=== PATIENT | female | born 1955 | race Caucasian/White ===

== ENCOUNTER 2022-09-24 08:25 | Day surgery (SDC) | payer MEDICARE, SELFPAY ==
[2022-07-30 11:31] VITALS: BMI 25.7
[2022-09-12 11:20] VITALS: BMI 25.3
--- NOTE | 2022-09-21 13:40 | PM.HPGS ---
History of Present Illness History of Present Illness Consent: Risks, benefits, and alternatives have been discussed and questions answered. Patient agrees to proceed with procedure. Chief complaint: Neoplasm Screening Narrative: Genevieve Senior is a 67 year old female referred for colon cancer screening. She had a normal colonoscopy 10 years ago Review of Systems Review of Systems: All systems reviewed & are unremarkable except as noted in HPI and below PMFSH Family History Family History Father Hypertension Malignant neoplasm of prostate Social History Social History Smoking status: Never smoker Alcohol intake: current Substance use: never Substance use type: does not use Living arrangements: with family Spiritual care concerns: No Meds Home Medications and Allergies Home Medications Medication Instructions Recorded Confirmed Type atorvastatin 10 mg tablet 10 mg PO DAILY 09/12/22 09/24/22 History escitalopram oxalate 10 mg tablet 10 mg PO DAILY 09/12/22 09/24/22 History lorazepam 0.5 mg tablet 0.5 mg PO DAILY 09/12/22 09/24/22 History omeprazole 40 mg capsule,delayed 40 mg PO DAILY 09/12/22 09/24/22 History release Allergies Allergy/AdvReac Type Severity Reaction Status Date / Time codeine AdvReac Mild Nausea and Verified 09/24/22 09:14 Vomiting Exam Const: General: alert Orientation/consciousness: patient oriented x3 Resp: Auscultation: clear to auscultation bilaterally Cardio: Rhythm: regular rhythm GI: GI Palp: Yes Soft to palpation and No Tenderness to palpation present (GI) Neuro: General: patient oriented x3 Assessment and Plan Assessment and plan (1) Colon cancer screening: Code(s): Z12.11 - Encounter for screening for malignant neoplasm of colon Status: Acute Assessment and Plan: Colonoscopy with possible biopsy or polypectomy or cautery or injection of substances.
[2022-09-24 09:05] VITALS: BP 105/68; PULSE 100; RESP 20; TEMP 37.2; O2SAT 99
[2022-09-24] MEDS: LACTATED RINGERS 1,000 ML 150 ML IV CONT (09:18)
--- NOTE | 2022-09-24 09:42 | WPDANESEPPF ---
Anes - Initial Pre Proc Eval Procedure: Operation Date: 09/24/22 10:30 Proposed Procedures p Screening Colonoscopy - Dez Khan MD Date/Time: 09/24/22 09:42 Surgeon: Dez Khan MD Pre Op Diagnosis: Neoplasm Screening Patient Data Age: 67 Gender: F Height: 1.63 m Weight: 67.2 kg Last Vital Signs Temp 37.2 C 09/24/22 09:05 Pulse 100 09/24/22 09:05 Resp 20 09/24/22 09:05 BP 105/68 09/24/22 09:05 Pulse Ox 99 09/24/22 09:05 O2 Del Method Room Air 09/24/22 09:05 Allergies Allergy/AdvReac Type Severity Reaction Status Date / Time codeine AdvReac Mild Nausea and Verified 09/24/22 09:14 Vomiting Home Medications Medication Instructions Recorded Confirmed Type atorvastatin 10 mg tablet 10 mg PO DAILY 09/12/22 09/24/22 History escitalopram oxalate 10 mg tablet 10 mg PO DAILY 09/12/22 09/24/22 History lorazepam 0.5 mg tablet 0.5 mg PO DAILY 09/12/22 09/24/22 History omeprazole 40 mg capsule,delayed 40 mg PO DAILY 09/12/22 09/24/22 History release Patient hx anesthesia problems: none Family hx anesthesia problems: none Results Review: All pre-operative results and documents have been reviewed as part of the pre-operative evaluation. [facility] Family History Family History Father Hypertension Malignant neoplasm of prostate Social History Social History Smoking status: Never smoker Alcohol intake: current Substance use: never Substance use type: does not use Living arrangements: with family Spiritual care concerns: No Anes - Eval Final PreProcedure Day of Procedure 09/24/22 09:42 Patient weight: normal Heart: regular rate and rhythm Lungs: clear to auscultation Airway: Mallampati scale class II Neurological: alert and oriented Last oral intake: >/= 8 hours ASA classification: II Emergent: no Anesthetic plan: proceed Anesthesia type and monitoring: general GIVS and standard monitoring Results Review: All pre-operative results and documents have been reviewed as part of the pre-operative evaluation. Informed Consent: The patient's anesthetic plan and its attendant risks and benefits were discussed with the patient/family/POA. Questions were solicited and answers provided to the satisfaction of the patient/family/POA.
[2022-09-24 10:40] VITALS: BP 91/63; PULSE 73; RESP 15; O2SAT 99
[2022-09-24 10:50] VITALS: BP 105/73; PULSE 65; RESP 15; O2SAT 99
[2022-09-24 11:00] VITALS: BP 103/69; PULSE 64; RESP 14; O2SAT 100
--- NOTE | 2022-09-24 12:26 | WPDANESPN ---
Anes - Prog Note Post-Op Date/Time: 09/24/22 12:26 Cardiovascular status: normal Respiratory status: normal Airway patency: baseline Mental status: baseline Post-Op hydration status: normal Vital Signs: Last Vital Signs Temp 37.2 C 09/24/22 09:05 Pulse 64 09/24/22 11:00 Resp 14 09/24/22 11:00 BP 103/69 09/24/22 11:00 Pulse Ox 100 09/24/22 11:00 O2 Del Method Room Air 09/24/22 11:00 Pain Score (VAS): 0 I/O: Intake & Output 09/23/22 09/24/22 09/24/22 23:59 07:59 15:59 Intake Total 400 Balance 400 Patient Feedback: Patient satisfied with anesthetic care.
== END 2022-09-24 11:20 | disposition home or self-care (01) ==
PROVIDERS: PCP Internal Medicine; Visit Provider Internal Medicine Gastroenterology
PROC: 0DJD8ZZ Inspection of Lower Intestinal Tract, Via Natural or Artificial Opening Endoscopic (ICD-10-PCS; CPT 45378; principal; 2022-09-24 10:30)
DX: Z12.11 Encounter for screening for malignant neoplasm of colon (principal)
CPT/HCPCS: 45378

== ENCOUNTER → 2023-10-11 12:06 | Outpatient (CLI) | payer MEDICARE, SELFPAY ==
--- NOTE | ~2023-10-11 | DEXA_ITS ---
Bone Density Report Name: FATOU BRODERICK Age: 68 Sex: Female Ethnicity: White Date of : 1955 Indication: postmenopausal; screening for osteoporosis; Referring Provider: CANDACE, KAVON Higuera Study: Bone densitometry was performed. Exam Date: October 11, 2023 Accession number: [id number] Bone Density: Region BMD T-score Z-score Classification AP Spine (L1-L4) 0.763 -2.6 -0.7 Osteoporosis Femoral Neck (Left) 0.608 -2.2 -0.6 Osteopenia Total Hip (Left) 0.757 -1.5 -0.2 Osteopenia Femoral Neck (Right) 0.606 -2.2 -0.6 Osteopenia Total Hip (Right) 0.768 -1.4 -0.1 Osteopenia Total Hip Mean 0.763 -1.5 -0.2 Osteopenia World Health Organization criteria for BMD impression classify patients as: Normal (T-score at or above -1.0), Osteopenia (T-score between -1.0 and -2.5), or Osteoporosis (T-score at or below -2.5). 10-year Fracture Risk: FRAX not reported because: Some T-score for Spine Total or Hip Total or Femoral Neck at or below -2.5 Clinical Information Provided by Patient: Has used the following medications: Vitamin D Patient maximum height was 63.7 Menopause Age: 59 Drinks caffeinated beverages Onset of menses at age 15 Number of children 2 Impression: The patient has osteoporosis, based on the Total Spine T-score. Discussion: INCREASED RISK OF FRACTURE. BONE DENSITY IS UNDESIRABLY LOW AT ONE OR MORE SKELETAL SITES, CONSISTENT WITH POSTMENOPAUSAL OSTEOPOROSIS. This patient's lowest T-score meets the World Health Organization's (WHO) criteria for osteoporosis at one or more sites (T-score -2.5 or below). In untreated patients, the risk of osteoporotic fracture increases approximately two-fold for each 1.0 SD decrease in T-score. Low bone density is not the only risk factor for fracture; also consider factors such as patient's age, frailty or poor health, risk of falling, risk of injury, previous osteoporotic fracture, family history of osteoporosis, cigarette smoking, low body weight, etc. Not everyone with low bone mineral density has osteoporosis; osteomalacia and other metabolic bone disorders should also be considered. Patients who have osteoporosis should be evaluated for specific diseases and conditions (secondary causes) that may cause or contribute to bone loss. The [place] [employer] (AACE) and National Osteoporosis Foundation (NOF) recommend pharmacologic intervention for all postmenopausal women whose T-score is in this range. The patient should follow a healthful lifestyle (good nutrition with adequate calcium and vitamin D, and appropriate weight-bearing exercise). Follow-Up: Consider a repeat BMD and Vertebral Fracture Assessment (VFA) exam in 2 years or sooner if medically necessary, to reassess this patient's status. Reported by: FOX on 10/11/2023 12:3
== END ==
PROVIDERS: PCP Obstetrics & Gynecology; Visit Provider Obstetrics & Gynecology
DX: Z78.0 Asymptomatic menopausal state (principal); M81.0 Age-related osteoporosis without current pathological fracture; M85.88 Other specified disorders of bone density and structure, other site; M85.852 Other specified disorders of bone density and structure, left thigh; M85.851 Other specified disorders of bone density and structure, right thigh
CPT/HCPCS: 77080